=== PATIENT | female | born 1955 | race Caucasian/White ===

== ENCOUNTER 2016-11-20 20:43 | Emergency (ER) | payer BC ==
[~2016-11-20] VITALS: Ht 160 cm; Wt 65.8 kg
[2016-11-20 22:05] VITALS: BP 113/72; PULSE 88; RESP 17; TEMP 97.6; O2SAT 98
--- NOTE | 2016-11-20 22:05 | NUR ---
Pt ambulatory, a/o x 4 c/o sore throat since last night and bilateral earache today. Pt reported 10/10 PS worse when swallowing. Pt has not taken any pain meds at home. Pt with rightt eye redness and irritation since and has been seen for her symptom. Pt with normal resp effort, no sob, lungs cta. Pt afebrile, no chills, no n/v, vital signs within normal limits. Pt awaiting ER MD to [facility].
--- NOTE | 2016-11-20 22:05 | NUR ---
Patient to ER chair 1 for evaluation.
--- NOTE | 2016-11-20 22:15 | NUR ---
ER examining patient.
[2016-11-20 22:24] VITALS: BP 113/72; PULSE 88; RESP 17; TEMP 97.6; O2SAT 98
[2016-11-20] MEDS ORDERED: LEVO100T9 PO (22:24)
--- NOTE | 2016-11-20 22:24 | NUR ---
Patient given written and verbal discharge instructions and verbalizes understanding. ER MD discussed with patient the results and treatment provided. Patient in stable condition. ID arm band removed. Rx of Azithromycin 250 mg tab and Lidocaine viscous given. Patient educated on pain management and to follow up with PMD. Pain Scale 10/10. Pt discharged as fast track. Opportunity for questions provided and answered.
== END 2016-11-20 22:24 | disposition home or self-care (01) ==
LOC: SED 20:43
DX: J02.8 Acute pharyngitis due to other specified organisms (principal); B96.89 Other specified bacterial agents as the cause of diseases classified elsewhere; Z88.0 Allergy status to penicillin
CPT/HCPCS: 99283